=== PATIENT | male | born 1995 | race Two or more races ===

== ENCOUNTER 2022-12-12 14:57 | Emergency (ER) | payer MEDICAID, OTHER ==
[~2022-12-12] VITALS: Ht 177.8 cm; Wt 68.0 kg
[2022-12-12 15:58] LABS: Basophils # (auto) 0 10 ^3/uL (0-0.2); Basophils % (auto) 0.2 % (0.0-2.0); Eosinophils # (auto) 0.2 10 ^3/uL (0-0.8); Eosinophils % (auto) 3.2 % (0.0-7.0); Hematocrit 44.3 % (41.0-53.0); Hemoglobin 14.7 g/dL (13.5-17.5); Lymphocytes # (auto) 1.3 10 ^3/uL (0.4-5.4); Lymphocytes % (auto) 25.2 % (10.0-50.0); Mean Corpuscular Hemoglobin 28.6 pg (28.0-32.0); Mean Corpuscular Hgb Conc. 33.2 g/dL (32.0-36.0); Monocytes # (auto) 0.5 10 ^3/uL (0-1.3); Monocytes % (auto) 9.9 % (0.0-12.0); Neutrophils # (auto) 3.1 10 ^3/uL (1.6-8.6); Neutrophils % (auto) 61.5 % (37.0-80.0); Nucleated Red Blood Cells % 0.1 %; Red Blood Cells 5.15 10^6/uL (4.5-5.90); Red Cell Distribution Width 13.8 % (11.8-14.3); White Blood Cell 5.1 10^3/uL (4.4-10.8)
[2022-12-12] MEDS ORDERED: IOHEXOL 300 MG/ML 100ML BOTTLE IJ ONE (16:06)
[2022-12-12 16:22] LABS: Alanine Aminotransferase 17 U/L (16-61); Albumin 3.6 g/dL (3.4-5.0); Anion Gap 7 (5-15); Aspartate Aminotransferase 10 U/L (15-37); BUN/Creatinine Ratio 16.7 (10.0-20.0); Blood Urea Nitrogen 12 mg/dL (7-18); Calcium 8.6 mg/dL (8.5-10.1); Carbon Dioxide 27 mmol/L (21-32); Chloride 102 mmol/L (98-107); GFR African American 167 mL/min; GFR Non-African American 138 mL/min; Glucose 90 mg/dL (74-106); Sodium 136 mmol/L (136-145)
[2022-12-12 16:25] LABS: Alkaline Phosphatase 97 U/L (45-117); Bilirubin, Total 0.4 mg/dL (0.2-1.0); Total Protein 7.2 g/dL (6.4-8.2)
[2022-12-12] MEDS ORDERED: IBUP200T76 PO (19:08)
[2022-12-12 19:43] VITALS: BP 140/73
== END 2022-12-12 19:54 | disposition home or self-care (01) ==
LOC: ER 14:57
DX: S23.3XXA Sprain of ligaments of thoracic spine, initial encounter (principal); R07.89 Other chest pain; R19.7 Diarrhea, unspecified; F20.9 Schizophrenia, unspecified; Z59.00 Homelessness unspecified; V09.9XXA Pedestrian injured in unspecified transport accident, initial encounter; Y93.89 Activity, other specified; Y92.89 Other specified places as the place of occurrence of the external cause; Y99.8 Other external cause status
CPT/HCPCS: 36415; 71260; 74177; 80053; 85025; 99285; Q9967

== ENCOUNTER 2023-01-08 11:54 | Emergency (ER) | payer MEDICAID, OTHER ==
[~2023-01-08] VITALS: Ht 177.8 cm; Wt 73.0 kg
[~2023-01-08 11:54] MED LIST: IBUP200T76 PO
[2023-01-08 14:00] LABS: Alcohol, Urine < 3.0 mg/dL (0-10); Amphetamine Screen, Urine NEGATIVE (NEGATIVE); Barbiturate Scree,Urine NEGATIVE (NEGATIVE); Benzodiazephine Screen, Urine NEGATIVE (NEGATIVE); Cannabinoid Screen, Urine NEGATIVE (NEGATIVE); Cocaine Screen, Urine NEGATIVE (NEGATIVE); Opiate Scree,Urine NEGATIVE (NEGATIVE); Phencyclidine Screen, Urine NEGATIVE (NEGATIVE)
[2023-01-08 14:00] LABS: Salicylate < 1.7 mg/dL (2.8-20.0)
[2023-01-08 14:13] LABS: Acetaminophen < 2.0 ug/mL (10-30)
[2023-01-09] MEDS ORDERED: OLANZapine 5 MG TAB PO ONE (06:30)
[2023-01-09] MEDS: OLANZapine 5 MG TAB PO SCH (22:07)
[2023-01-10] MEDS: OLANZapine 5 MG TAB PO SCH ×2 (10:23→22:00)
[2023-01-11] MEDS: OLANZapine 5 MG TAB PO SCH ×2 (09:17→23:02)
[2023-01-11 18:03] LABS: Basophils # (auto) 0.1 10 ^3/uL (0-0.2); Eosinophils # (auto) 0.4 10 ^3/uL (0-0.8); Eosinophils % (auto) 6.8 % (0.0-7.0); Hematocrit 40.1 % (41.0-53.0); Hemoglobin 13.6 g/dL (13.5-17.5); Lymphocytes # (auto) 2.1 10 ^3/uL (0.4-5.4); Lymphocytes % (auto) 32.1 % (10.0-50.0); Mean Corpuscular Hgb Conc. 33.9 g/dL (32.0-36.0); Mean Corpuscular Volume 85.5 fL (80.0-100.0); Monocytes # (auto) 0.4 10 ^3/uL (0-1.3); Monocytes % (auto) 5.9 % (0.0-12.0); Neutrophils # (auto) 3.6 10 ^3/uL (1.6-8.6); Neutrophils % (auto) 54.2 % (37.0-80.0); Red Blood Cells 4.69 10^6/uL (4.5-5.90); Red Cell Distribution Width 14.5 % (11.8-14.3); White Blood Cell 6.6 10^3/uL (4.4-10.8)
[2023-01-11 18:25] LABS: Albumin 3.7 g/dL (3.4-5.0); Calcium 8.9 mg/dL (8.5-10.1); Potassium 4.3 mmol/L (3.5-5.1)
[2023-01-11 18:36] LABS: Bilirubin, Total 0.4 mg/dL (0.2-1.0); Total Protein 7.4 g/dL (6.4-8.2)
[2023-01-12] MEDS: OLANZapine 5 MG TAB PO SCH ×2 (11:11→21:44)
[2023-01-12] MEDS: levETIRAcetam 500 MG TAB PO SCH (11:11)
[2023-01-13] MEDS: levETIRAcetam 500 MG TAB PO SCH (11:07)
[2023-01-13] MEDS: OLANZapine 5 MG TAB PO SCH (11:07)
[2023-01-13 11:20] VITALS: BP 114/81
[2023-01-13] MEDS ORDERED: LORazepam 0.5 MG TAB PO ONE (17:00)
== END 2023-01-13 18:27 | disposition left against medical advice (07) ==
LOC: ER 11:54 → EDBD 11:54 → ER 01-13 18:27
DX: F20.9 Schizophrenia, unspecified (principal); Z79.899 Other long term (current) drug therapy; Z59.00 Homelessness unspecified
CPT/HCPCS: 36415; 80053; 80307; 80320; 80329; 85025

== ENCOUNTER 2023-01-14 12:03 | Emergency (ER) | payer MEDICAID, OTHER ==
[~2023-01-14] VITALS: Ht 177.8 cm; Wt 70.4 kg
[2023-01-14 12:03] VITALS: BP 116/81
== END 2023-01-14 12:31 | disposition left against medical advice (07) ==
LOC: ER 12:03
DX: F29 Unspecified psychosis not due to a substance or known physiological condition (principal); Z76.0 Encounter for issue of repeat prescription; Z53.21 Procedure and treatment not carried out due to patient leaving prior to being seen by health care provider

== ENCOUNTER 2023-01-16 19:09 | Emergency (ER) | payer MEDICAID ==
[~2023-01-16] VITALS: Ht 177.8 cm; Wt 72.0 kg
[2023-01-16 19:09] VITALS: BP 115/70; PULSE 80; RESP 20; O2SAT 98
== END 2023-01-16 21:20 | disposition left against medical advice (07) ==
LOC: ER 19:09
DX: F20.9 Schizophrenia, unspecified (principal); Z76.0 Encounter for issue of repeat prescription; Z53.21 Procedure and treatment not carried out due to patient leaving prior to being seen by health care provider

== ENCOUNTER 2023-02-05 19:16 | Emergency (ER) | payer MEDICAID ==
[~2023-02-05] VITALS: Ht 185.4 cm; Wt 81.8 kg
[2023-02-05] MEDS ORDERED: LORazepam 0.5 MG TAB PO ONE (19:45)
[2023-02-05 19:50] LABS: Basophils # (auto) 0.1 10 ^3/uL (0-0.2); Basophils % (auto) 1.5 % (0.0-2.0); Eosinophils # (auto) 0.2 10 ^3/uL (0-0.8); Eosinophils % (auto) 4.2 % (0.0-7.0); Hematocrit 43.2 % (41.0-53.0); Hemoglobin 14.6 g/dL (13.5-17.5); Lymphocytes # (auto) 2.2 10 ^3/uL (0.4-5.4); Lymphocytes % (auto) 37.5 % (10.0-50.0); Mean Corpuscular Hemoglobin 29.4 pg (28.0-32.0); Mean Corpuscular Hgb Conc. 33.7 g/dL (32.0-36.0); Mean Corpuscular Volume 87.2 fL (80.0-100.0); Monocytes # (auto) 0.4 10 ^3/uL (0-1.3); Monocytes % (auto) 7.4 % (0.0-12.0); Neutrophils # (auto) 2.8 10 ^3/uL (1.6-8.6); Neutrophils % (auto) 49.4 % (37.0-80.0); Nucleated Red Blood Cells % 0.1 %; Red Blood Cells 4.95 10^6/uL (4.5-5.90); Red Cell Distribution Width 14.4 % (11.8-14.3); White Blood Cell 5.8 10^3/uL (4.4-10.8)
[2023-02-05 19:57] LABS: Urine Bacteria NONE SEEN /hpf (None Seen); Urine Blood Negative /uL (Negative); Urine Clarity Clear (Clear); Urine Color Yellow (Yellow); Urine Mucus FEW (None Seen); Urine Protein, UAD TRACE (Negative); Urine Specific Gravity 1.037 (1.001-1.035); Urine Urobilinogen Normal (Negative); Urine WBC 1 /hpf (0 - 3); Urine pH 5.5 (5.0-8.0)
[2023-02-05 20:08] LABS: Albumin 3.8 g/dL (3.4-5.0); Anion Gap 6 (5-15); Blood Alcohol < 3.0 mg/dL (<10); Blood Urea Nitrogen 22 mg/dL (7-18); Calcium 8.7 mg/dL (8.5-10.1); Carbon Dioxide 26 mmol/L (21-32); Chloride 110 mmol/L (98-107); Glucose 109 mg/dL (74-106); Sodium 142 mmol/L (136-145)
[2023-02-05 20:09] LABS: Salicylate < 1.7 mg/dL (2.8-20.0)
[2023-02-05 20:11] LABS: Alanine Aminotransferase 20 U/L (16-61); Alkaline Phosphatase 93 U/L (45-117); Aspartate Aminotransferase 18 U/L (15-37); BUN/Creatinine Ratio 28.6 (10.0-20.0); Bilirubin, Total 0.6 mg/dL (0.2-1.0); GFR African American 154 mL/min; GFR Non-African American 127 mL/min; Total Protein 7.4 g/dL (6.4-8.2)
[2023-02-05 20:14] LABS: Acetaminophen < 2.0 ug/mL (10-30)
[2023-02-05 20:37] LABS: Alcohol, Urine < 3.0 mg/dL (0-10); Amphetamine Screen, Urine NEGATIVE (NEGATIVE); Barbiturate Scree,Urine NEGATIVE (NEGATIVE); Benzodiazephine Screen, Urine NEGATIVE (NEGATIVE); Cannabinoid Screen, Urine NEGATIVE (NEGATIVE); Cocaine Screen, Urine NEGATIVE (NEGATIVE); Opiate Scree,Urine NEGATIVE (NEGATIVE); Phencyclidine Screen, Urine NEGATIVE (NEGATIVE)
[2023-02-06 01:15] VITALS: PULSE 72; RESP 16; O2SAT 100
[2023-02-06 08:56] VITALS: PULSE 68; RESP 16; O2SAT 99
[2023-02-06] MEDS ORDERED: FLUoxetine HCL 20 MG CAP PO SCH (10:00)
[2023-02-06] MEDS: QUEtiapine FUMARATE 25 MG TAB PO SCH ×2 (10:11→23:14)
[2023-02-06 19:35] VITALS: PULSE 76; RESP 17; O2SAT 98
[2023-02-07 08:07] VITALS: PULSE 76; RESP 16; O2SAT 97
[2023-02-07 08:45] VITALS: BP 131/67; PULSE 76; RESP 16; TEMP 98.1; O2SAT 97
== END 2023-02-07 09:07 | disposition short-term general hospital (02) ==
LOC: ER 19:16 → EDBD 19:16 → ER 02-07 09:07
DX: R44.0 Auditory hallucinations (principal); R45.851 Suicidal ideations; F17.210 Nicotine dependence, cigarettes, uncomplicated; F15.90 Other stimulant use, unspecified, uncomplicated; F10.90 Alcohol use, unspecified, uncomplicated; Z88.8 Allergy status to other drugs, medicaments and biological substances; Z79.1 Long term (current) use of non-steroidal anti-inflammatories (NSAID); Y90.0 Blood alcohol level of less than 20 mg/100 ml
CPT/HCPCS: 36415; 71045; 80053; 80307; 80320; 80329; 81001; 85025

== ENCOUNTER 2023-05-26 16:41 | Emergency (ER) | payer MEDICAID ==
[~2023-05-26] VITALS: Ht 177.8 cm; Wt 77.2 kg
[2023-05-26 17:30] VITALS: PULSE 104; RESP 18; O2SAT 98
[2023-05-26] MEDS ORDERED: SODIUM CHLORIDE 0.9% 1,000 ML IV ONE (17:30)
[2023-05-26 17:32] LABS: Basophils # (auto) 0.1 10 ^3/uL (0-0.2); Basophils % (auto) 0.9 % (0.0-2.0); Eosinophils # (auto) 0 10 ^3/uL (0-0.8); Eosinophils % (auto) 0.1 % (0.0-7.0); Hematocrit 40.6 % (41.0-53.0); Hemoglobin 13.8 g/dL (13.5-17.5); Lymphocytes # (auto) 1.5 10 ^3/uL (0.4-5.4); Lymphocytes % (auto) 22.7 % (10.0-50.0); Mean Corpuscular Hemoglobin 29.4 pg (28.0-32.0); Mean Corpuscular Volume 86.4 fL (80.0-100.0); Monocytes # (auto) 0.5 10 ^3/uL (0-1.3); Monocytes % (auto) 6.7 % (0.0-12.0); Neutrophils # (auto) 4.8 10 ^3/uL (1.6-8.6); Neutrophils % (auto) 69.6 % (37.0-80.0); Red Cell Distribution Width 13.6 % (11.8-14.3); White Blood Cell 6.8 10^3/uL (4.4-10.8)
[2023-05-26 17:49] LABS: Acetaminophen < 2.0 UG/ML (10.0-20.0); Alanine Aminotransferase 24 U/L (7-40); Alkaline Phosphatase 110 U/L (46-116); Anion Gap 10 (5-15); Aspartate Aminotransferase 33 U/L (13-40); BUN/Creatinine Ratio 15.6 (10.0-20.0); Bilirubin, Total 1.4 mg/dL (0.2-1.0); Blood Urea Nitrogen 15 mg/dL (9-23); Calcium 9.5 mg/dL (8.7-10.4); Carbon Dioxide 23 mmol/L (20-30); Chloride 104 mmol/L (98-107); Glucose 109 mg/dL (74-106); Magnesium 2.2 mg/dL (1.6-2.6); Potassium 4.1 mmol/L (3.5-5.1); Sodium 137 mmol/L (136-145)
[2023-05-26 17:50] LABS: Total Protein 7.8 g/dL (5.7-8.2)
[2023-05-26 18:30] LABS: Salicylate < 3.0 mg/dL (2.8-20.0)
[2023-05-26 19:30] VITALS: PULSE 104; RESP 13; O2SAT 96
[2023-05-27 02:45] VITALS: PULSE 89; RESP 16; O2SAT 99
[2023-05-28 08:02] VITALS: PULSE 79; RESP 17; O2SAT 96
[2023-05-28 08:27] LABS: Amphetamine Screen, Urine Pos (NEGATIVE)
[2023-05-28 08:29] LABS: Barbiturate Scree,Urine Neg (NEGATIVE); Benzodiazephine Screen, Urine Neg (NEGATIVE); Cannabinoid Screen, Urine Pos (NEGATIVE); Cocaine Screen, Urine Neg (NEGATIVE); Opiate Scree,Urine Neg (NEGATIVE); Phencyclidine Screen, Urine Neg (NEGATIVE)
[2023-05-28 08:43] LABS: Urine Bacteria NONE SEEN /hpf (None Seen); Urine Blood Negative /uL (Negative); Urine Clarity Clear (Clear); Urine Color Yellow (Yellow); Urine Mucus FEW (None Seen); Urine Protein, UAD 1+ (Negative); Urine Specific Gravity 1.041 (1.001-1.035); Urine Urobilinogen Normal (Negative); Urine WBC 3 /hpf (0 - 3)
[2023-05-28] MEDS ORDERED: QUEtiapine FUMARATE 25 MG TAB PO SCH (22:00)
[2023-05-29 05:24] VITALS: PULSE 77; RESP 20; O2SAT 99
[2023-05-29 19:35] VITALS: PULSE 72; RESP 17; O2SAT 97
[2023-05-29 21:00] VITALS: BP 123/82; PULSE 66; RESP 16; TEMP 98.3; O2SAT 100
== END 2023-05-29 21:26 | disposition short-term general hospital (02) ==
LOC: ER 16:41
DX: T43.591A Poisoning by other antipsychotics and neuroleptics, accidental (unintentional), initial encounter (principal); R51.9 Headache, unspecified; Z79.899 Other long term (current) drug therapy; Y92.9 Unspecified place or not applicable
CPT/HCPCS: 36415; 70450; 80053; 80307; 80320; 80329; 81001; 83735; 85025; 93005; 96360; 99285; J7030

== ENCOUNTER 2023-06-04 07:12 | Emergency (ER) | payer MEDICAID ==
[~2023-06-04] VITALS: Ht 180.3 cm; Wt 69.0 kg
[2023-06-04 08:35] LABS: Amphetamine Screen, Urine Neg (NEGATIVE)
[2023-06-04 08:36] LABS: Barbiturate Scree,Urine Neg (NEGATIVE); Benzodiazephine Screen, Urine Neg (NEGATIVE); Cannabinoid Screen, Urine Neg (NEGATIVE); Cocaine Screen, Urine Neg (NEGATIVE); Opiate Scree,Urine Neg (NEGATIVE); Phencyclidine Screen, Urine Neg (NEGATIVE)
[2023-06-04] MEDS ORDERED: ALPRAZolam 0.5 MG TAB PO ONE (17:00)
[2023-06-04 18:27] VITALS: PULSE 80; RESP 20; O2SAT 96
[2023-06-04] MEDS ORDERED: QUEtiapine FUMARATE 25 MG TAB PO SCH (22:00)
[2023-06-05 09:09] VITALS: BP 120/66; TEMP 98.1
[2023-06-05 14:50] VITALS: PULSE 89; RESP 17; O2SAT 98
== END 2023-06-05 16:34 | disposition home or self-care (01) ==
LOC: ER 07:12
DX: F20.9 Schizophrenia, unspecified (principal); F17.210 Nicotine dependence, cigarettes, uncomplicated; Z59.00 Homelessness unspecified
CPT/HCPCS: 36415; 80307; 80320

== ENCOUNTER 2023-11-03 08:55 | Emergency (ER) | payer MEDICAID ==
[~2023-11-03] VITALS: Ht 182.9 cm; Wt 72.9 kg
[~2023-11-03 08:55] MED LIST changes: +ARIP5TAB11 PO; +BUPR-36 PO; +LEVE500T40 PO; +OLAN10TA PO; +OLAN20TA PO; +QUET100T38 PO
[2023-11-03 09:52] VITALS: BP 144/92; PULSE 102; RESP 18; TEMP 98; O2SAT 98
[2023-11-03] MEDS: diphenhdrAMINE HCL 50 MG/1 ML VL IM ONE (10:21)
== END 2023-11-03 10:57 | disposition home or self-care (01) ==
LOC: ER 08:55
DX: F41.1 Generalized anxiety disorder (principal); F17.210 Nicotine dependence, cigarettes, uncomplicated; F12.10 Cannabis abuse, uncomplicated; F15.10 Other stimulant abuse, uncomplicated; F14.10 Cocaine abuse, uncomplicated; Z59.00 Homelessness unspecified
CPT/HCPCS: 96372; 99283; J1200

== ENCOUNTER 2023-11-13 12:48 | Emergency (ER) | payer MEDICAID, OTHER ==
[~2023-11-13] VITALS: Ht 177.8 cm; Wt 73.0 kg
[2023-11-13] MEDS: LORazepam 2MG/ML-1ML VIAL ONE (13:22)
[2023-11-13] MEDS: LORazepam 2MG/ML-1ML VIAL IM ONE (13:22)
[2023-11-13] MEDS: HALOPERIDOL LACTATE 5 MG/ML INJ VIAL ONE (13:22)
[2023-11-13] MEDS: HALOPERIDOL LACTATE 5 MG/ML INJ VIAL IM ONE (13:22)
[2023-11-13 18:03] LABS: Urine Bacteria None Seen /hpf (None Seen)
[2023-11-13 18:29] LABS: Amphetamine Screen, Urine Neg (NEGATIVE); Barbiturate Scree,Urine Neg (NEGATIVE); Benzodiazephine Screen, Urine Neg (NEGATIVE); Cannabinoid Screen, Urine Neg (NEGATIVE); Cocaine Screen, Urine Neg (NEGATIVE); Opiate Scree,Urine Neg (NEGATIVE); Phencyclidine Screen, Urine Neg (NEGATIVE)
[2023-11-13 18:36] LABS: Urine Blood 1+ /uL (Negative); Urine Clarity Clear (Clear); Urine Color Colorless (Yellow); Urine Protein, UAD Negative (Negative); Urine Specific Gravity 1.002 (1.001-1.035); Urine Urobilinogen Normal (Negative); Urine WBC <1 /hpf (0 - 3)
[2023-11-13 19:20] VITALS: PULSE 66; RESP 16; O2SAT 96
[2023-11-14 07:38] VITALS: PULSE 90; RESP 18; O2SAT 99
[2023-11-14 07:41] VITALS: BP 114/54; PULSE 90; RESP 18; TEMP 98.1; O2SAT 99
== END 2023-11-14 23:00 | disposition home or self-care (01) ==
LOC: ER 12:48 → EDUNIT# 12:48 → ER 11-14 23:00
DX: F29 Unspecified psychosis not due to a substance or known physiological condition (principal); F32.9 Major depressive disorder, single episode, unspecified; F20.9 Schizophrenia, unspecified; F15.90 Other stimulant use, unspecified, uncomplicated; Z79.899 Other long term (current) drug therapy
CPT/HCPCS: 80307; 81001; 96372; 99284; J1630; J2060

== ENCOUNTER 2023-12-22 00:59 | Emergency (ER) | payer MEDICAID ==
[~2023-12-22] VITALS: Ht 172.7 cm; Wt 70.0 kg
[2023-12-22 02:05] LABS: Basophils # (auto) 0.1 10 ^3/uL (0-0.2); Basophils % (auto) 0.8 % (0.0-2.0); Eosinophils # (auto) 0 10 ^3/uL (0-0.8); Eosinophils % (auto) 0.2 % (0.0-7.0); Hematocrit 41.7 % (41.0-53.0); Lymphocytes # (auto) 1.3 10 ^3/uL (0.4-5.4); Lymphocytes % (auto) 10.5 % (10.0-50.0); Mean Corpuscular Hemoglobin 29.7 pg (28.0-32.0); Mean Corpuscular Volume 82.7 fL (80.0-100.0); Monocytes # (auto) 0.5 10 ^3/uL (0-1.3); Monocytes % (auto) 3.9 % (0.0-12.0); Neutrophils # (auto) 10.1 10 ^3/uL (1.6-8.6); Neutrophils % (auto) 84.6 % (37.0-80.0); Nucleated Red Blood Cells % 0.1 %; Red Blood Cells 5.05 10^6/uL (4.5-5.90); Red Cell Distribution Width 13.8 % (11.8-14.3)
[2023-12-22 02:10] LABS: Chloride 109 mmol/L (98-107); Potassium 3.8 mmol/L (3.5-5.1); Sodium 138 mmol/L (136-145)
[2023-12-22 02:11] LABS: Anion Gap 12 (5-15); Carbon Dioxide 17 mmol/L (20-30)
[2023-12-22 02:12] LABS: Calcium 10.8 mg/dL (8.7-10.4)
[2023-12-22 02:16] LABS: BUN/Creatinine Ratio 10.7 (10.0-20.0); Blood Urea Nitrogen 12 mg/dL (9-23); Glucose 108 mg/dL (74-106)
[2023-12-22 02:18] LABS: Creatine Kinase IFCC 118 U/L (46-171)
[2023-12-22 02:28] LABS: Blood Alcohol < 3.0 mg/dL (<10)
[2023-12-22 02:49] VITALS: PULSE 106; RESP 19; TEMP 98.1; O2SAT 96
[2023-12-22] MEDS: LORazepam 2MG/ML-1ML VIAL IV ONE (02:55)
[2023-12-22] MEDS: SODIUM CHLORIDE 0.9% 1,000 ML IV ONE (02:55)
[2023-12-22 03:24] LABS: Salicylate < 3.0 mg/dL (2.8-20.0)
[2023-12-22 03:34] LABS: Acetaminophen < 2.0 UG/ML (10.0-20.0)
[2023-12-22 06:00] VITALS: BP 146/86; PULSE 93; RESP 13; O2SAT 95
== END 2023-12-22 06:00 | disposition home or self-care (01) ==
LOC: EDBD 00:59 → ER 00:59
DX: T43.651A Poisoning by methamphetamines accidental (unintentional), initial encounter (principal); F32.9 Major depressive disorder, single episode, unspecified; F20.9 Schizophrenia, unspecified; Y92.89 Other specified places as the place of occurrence of the external cause
CPT/HCPCS: 36415; 80048; 80320; 80329; 82550; 84484; 85025; 93005; 96361; 96374; 99284; J2060; J7030

== ENCOUNTER 2024-06-28 00:25 | Emergency (ER) | payer MEDICAID ==
[~2024-06-28] VITALS: Ht 172.7 cm; Wt 160.0 kg
--- NOTE | 2024-06-28 00:54 | ED.PDOC ---
Psychiatric HPI Comments 29-year-old male who came to ER via EMS for hallucinations. Per EMS, patient was picked up on the streets by SO, with an initial call of suicide ideations. Patient does have history of schizophrenia and seizures but has been off his medications for months. Patient denies being suicidal at this time. States he just wants to get back to the [place] residence. He does admit that he has been having auditory and visual hallucinations. Denies taking any prohibited drugs Chief Complaint: Hallucinations Time Seen by MD: 00:53 Primary Care Provider: Denny Jacobs Notes: Child Adolescent Psychiatrist Notes Information Source: Patient Mode of Arrival: EMS Severity: Unable to Care for Self, Unable to Control Self Severity of Pain: Moderate Severity of Mental Status: Moderate Severity of Symptoms: Moderate Timing: Hours Duration: Intermittent Prehospital treatment: None Presents with: Depression, Anxiety, Unclear Thinking, Bizarre Behavior, Suicidal Ideation Circumstance: Medical Clearance, Causing a Disturbance Current substance abuse: None Stressors: Homeless History of: Schizophrenia Associated signs and symptoms: Depression, Hopeless, Anxiety, Hallucinations Past Medical History PAST MEDICAL HISTORY: Depression, Schizophrenia, Seizures Surgical History: Denies all surgeries Family History Family History: Reviewed,noncontributory to illness Social History Smoker: Non-Smoker Alcohol: Denies ETOH Use Drugs: Denies Drug Use Lives In: Homeless Constitutional: denies: chills, diaphoresis, fatigue, fever, malaise, sweats, weakness, others EENTM: denies: blurred vision, double vision, ear bleeding, ear discharge, ear drainage, ear pain, ear ringing, eye pain, eye redness, hearing loss, mouth pain, mouth swelling, nasal discharge, nose bleeding, nose congestion, nose pain, photophobia, tearing, throat pain, throat swelling, voice changes, others Respiratory: denies: cough, hemoptysis, orthopnea, SOB at rest, shortness of breath, SOB with excertion, stridor, wheezing, others Cardiovascular: denies: chest pain, dizzy spells, diaphoresis, Dyspnea on exertion, edema, irregular heart beat, left arm pain, lightheadedness, palpitations, PND, syncope, others Gastrointestinal: denies: abdomen distended, abdominal pain, blood streaked bowels, constipated, diarrhea, dysphagia, difficulty swallowing, hematemesis, melena, nausea, poor appetite, poor fluid intake, rectal bleeding, rectal pain, vomiting, others Genitourinary: denies: burning, dysuria, flank pain, frequency, hematuria, incontinence, penile discharge, penile sore, pain, testicle pain, testicle swelling, urgency, others Neurological: denies: dizziness, fainting, headache, left sided numbness, left sided weakness, numbness, paresthesia, pre-existing deficit, right sided numbness, right sided weakness, seizure, speech problems, tingling, tremors, weakness, others Musculoskeletal: denies: back pain, gout, joint pain, joint swelling, muscle pain, muscle stiffness, neck pain, others Integumetry: denies: bruises, change in color, change in hair/nails, dryness, laceration, lesions, lumps, rash, wounds, others Allergic/Immunocompromised: denies: Difficulty Healing, Frequent Infections, Hives, Itching, others Hematologic/Lymphatic: denies: anemia, blood clots, easy bleeding, easy bruising, swollen glands, others Endocrine: denies: excessive hunger, excessive sweating, excessive thirst, excessive urination, flushing, intolerance to cold, intolerance to heat, unexplained weight gain, unexplained weight loss, others Psychiatric: reports: schizophrenia, suicidal; denies: anxiety, bipolar disorder, depression, hopeless, panic disorder, sleepless, others Physical Exam General Appearance: No Apparent Distress, Normal HEENT: Normal ENT Inspection, Pharynx Normal, TMs Normal Neck: Full Range of Motion, Non-Tender, Normal, Normal Inspection Respiratory: Chest Non-Tender, Lungs Clear, No Accessory Muscle Use, No R espiratory Distress, Normal Breath Sounds Cardiovascular: No Edema, No JVD, No Murmur, No Gallop, Normal Peripheral Pulses, Regular Rate/Rhythm Breast Exam: Deferred Gastrointestinal: No Organomegaly, Non Tender, No Pulsatile Mass, Normal Bowel Sounds, Soft Genitalia: Deferred Pelvic: Deferred Rectal: Deferred Extremities: No calf tenderness, Normal capillary refill, Normal inspection, Normal range of motion, Non-tender, No pedal edema Musculoskeletal : Apperance: Normal Neurologic: Alert, engraver jewelry II-XII nml as Tested, No Motor Deficits, Normal Affect, Normal Mood, No Sensory Deficits, Other (no SI, no HI, mild flight of ideas, able to safety plan) Cerebellar Function: Normal Reflexes: Normal Skin: Dry, Normal Color, Warm Lymphatic: No Adenopathy Was a procedure done? Was a procedure done?: No Psych Differential Dx Psych. Differential Dx: Anxiety, Bipolar Disorder, Depression, Hopeless, Panic Disorder, Schizoprenia, Suicidal X-Ray, Labs, Meds, VS Vital Signs Date Time Temp Pulse Resp B/P (MAP) Pulse Ox O2 Delivery O2 Flow Rate FiO2 06/28/24 00:25 98.0 68 18 127/89 (102) 99 Lab Test 06/28/24 00:54 Range/Units White Blood Count 8.1 4.4-10.8 10^3/uL Red Blood Count 4.96 4.5-5.90 10^6/uL Hemoglobin 14.5 13.5-17.5 g/dL Hematocrit 42.7 41.0-53.0 % Mean Corpuscular Volume 86.2 80.0-100.0 fL Mean Corpuscular Hemoglobin 29.2 28.0-32.0 pg Mean Corpuscular Hemoglobin Concent 33.9 32.0-36.0 g/dL Red Cell Distribution Width 14.3 11.8-14.3 % Platelet Count 280 140-450 10^3/uL Mean Platelet Volume 7.3 6.9-10.8 fL Neutrophils (%) (Auto) 64.1 37.0-80.0 % Lymphocytes (%) (Auto) 24.2 10.0-50.0 % Monocytes (%) (Auto) 6.8 0.0-12.0 % Eosinophils (%) (Auto) 3.8 0.0-7.0 % Basophils (%) (Auto) 1.1 0.0-2.0 % Neutrophils # (Auto) 5.2 1.6-8.6 10 ^3/uL Lymphocytes # (Auto) 2.0 0.4-5.4 10 ^3/uL Monocytes # (Auto) 0.6 0-1.3 10 ^3/uL Eosinophils # (Auto) 0.3 0-0.8 10 ^3/uL Basophils # (Auto) 0.1 0-0.2 10 ^3/uL Nucleated Red Blood Cells 0.0 % Sodium Level 141 136-145 mmol/L Potassium Level 3.6 3.5-5.1 mmol/L Chloride Level 107 98-107 mmol/L Carbon Dioxide Level 26 20-31 mmol/L Anion Gap 8 5-15 Blood Urea Nitrogen 15 9-23 mg/dL Creatinine 0.88 0.700-1.30 mg/dL Glomerular Filtration Rate Calc 119 >90 mL/min BUN/Creatinine Ratio 17.0 10.0-20.0 Serum Glucose 115 H 74-106 mg/dL Calcium Level 10.1 8.7-10.4 mg/dL Total Bilirubin 0.8 0.2-1.0 mg/dL Aspartate Amino Transferase (AST) 12 L 13-40 U/L Alanine Aminotransferase (ALT) 11 7-40 U/L Alkaline Phosphatase 86 46-116 U/L Total Protein 7.5 5.7-8.2 g/dL Albumin 4.5 3.2-4.8 g/dL Salicylates Level < 3.0 -30 mg/dL Acetaminophen Level < 2.0 L 10.0-20.0 UG/ML Plasma/Serum Blood Alcohol 8.0 <10 mg/dL Time of 1ST Reevaluation: 00:49 Reevaluation 1ST: Unchanged Patient Education/Counseling: Diagnosis, Treatment Family Education/Counseling: No Family Present Departure 1 Departure Time of Disposition: 02:48 Impression: Primary Impression: Schizophrenia Disposition: 01 HOME / SELF CARE / HOMELESS Condition: Stable Discharged With: Self Critical Care Note Critical Care Time?: No Stability Stability form required: No Heart Score Heart Score: Heart Score Response (Comments) Value History N/A 0 EKG N/A 0 Age N/A 0 Risk Factors N/A 0 Troponin N/A 0 Total 0 I personally scribed for SNEHAL COSTELLO MD ([email or web address]) on 06/28/24 at 00:54. Electronically submitted by Eduardo Garland ([email or web address]). SNEHAL COSTELLO MD Jun 28, 2024 00:54
[2024-06-28 01:34] LABS: Basophils # (auto) 0.1 10 ^3/uL (0-0.2); Basophils % (auto) 1.1 % (0.0-2.0); Eosinophils # (auto) 0.3 10 ^3/uL (0-0.8); Eosinophils % (auto) 3.8 % (0.0-7.0); Hematocrit 42.7 % (41.0-53.0); Hemoglobin 14.5 g/dL (13.5-17.5); Lymphocytes % (auto) 24.2 % (10.0-50.0); Mean Corpuscular Hemoglobin 29.2 pg (28.0-32.0); Mean Corpuscular Hgb Conc. 33.9 g/dL (32.0-36.0); Mean Corpuscular Volume 86.2 fL (80.0-100.0); Monocytes # (auto) 0.6 10 ^3/uL (0-1.3); Monocytes % (auto) 6.8 % (0.0-12.0); Neutrophils # (auto) 5.2 10 ^3/uL (1.6-8.6); Neutrophils % (auto) 64.1 % (37.0-80.0); Platelet Count (auto) 280 10^3/uL (140-450); Red Blood Cells 4.96 10^6/uL (4.5-5.90); Red Cell Distribution Width 14.3 % (11.8-14.3); White Blood Cell 8.1 10^3/uL (4.4-10.8)
[2024-06-28 01:36] LABS: Alanine Aminotransferase 11 U/L (7-40); Albumin 4.5 g/dL (3.2-4.8); Alkaline Phosphatase 86 U/L (46-116); Anion Gap 8 (5-15); Blood Urea Nitrogen 15 mg/dL (9-23); Calcium 10.1 mg/dL (8.7-10.4); Carbon Dioxide 26 mmol/L (20-31); Potassium 3.6 mmol/L (3.5-5.1); Sodium 141 mmol/L (136-145)
[2024-06-28 01:37] LABS: Bilirubin, Total 0.8 mg/dL (0.2-1.0); Total Protein 7.5 g/dL (5.7-8.2)
[2024-06-28 01:39] LABS: Acetaminophen < 2.0 UG/ML (10.0-20.0); Aspartate Aminotransferase 12 U/L (13-40); Chloride 107 mmol/L (98-107); Glucose 115 mg/dL (74-106); Salicylate < 3.0 mg/dL (-30)
[2024-06-28 03:05] VITALS: BP 127/89; PULSE 68; RESP 18; TEMP 98; O2SAT 99
== END 2024-06-28 03:08 | disposition home or self-care (01) ==
LOC: ER 00:25 → EDUNIT# 00:25 → EDBD 00:25 → ER 03:08
DX: F20.9 Schizophrenia, unspecified (principal); F32.A Depression, unspecified; Z59.00 Homelessness unspecified
CPT/HCPCS: 36415; 80053; 80320; 80329; 85025

== ENCOUNTER 2025-02-13 21:44 | Emergency (ER) | payer MEDICAID ==
[~2025-02-13] VITALS: Ht 180.3 cm; Wt 65.1 kg
[2025-02-13 23:09] LABS: Chloride 103 mmol/L (98-107); Potassium 4.1 mmol/L (3.5-5.1)
[2025-02-13 23:10] LABS: Anion Gap 7 (5-15); Carbon Dioxide 24 mmol/L (20-31)
[2025-02-13 23:11] LABS: Calcium 9.5 mg/dL (8.7-10.4); Hematocrit 37.9 % (41.0-53.0); Hemoglobin 13.5 g/dL (13.5-17.5); Mean Corpuscular Hemoglobin 30.4 pg (28.0-32.0); Mean Corpuscular Volume 85.3 fL (80.0-100.0); Nucleated Red Blood Cells % 0.1 %
[2025-02-13 23:15] LABS: Glucose 102 mg/dL (74-106); Sodium 134 mmol/L (136-145)
[2025-02-13 23:16] LABS: BUN/Creatinine Ratio 9.5 (10.0-20.0)
[2025-02-13 23:22] LABS: Blood Urea Nitrogen 8 mg/dL (9-23)
--- NOTE | 2025-02-14 01:30 | ED.PDOC ---
History of Present Illness HPI Comments This patient is a unfortunate 30-year-old homeless male who arrives the ED today for assistance with general health concerns. Patient states he used to be on psych medications, but has been out of medication for nearly a year. Patient believes he was on Abilify. Patient has a flat affect and appears fearful. Patient is in for general mental health assistance. Vital signs were stable. Patient denies any SI or HI. Chief Complaint: Mental Health Time Seen by MD: 22:00 Primary Care Provider: Denny Reviewed Notes: Nurses Notes Allergies: Coded Allergies: NO KNOWN ALLERGIES (Unverified , 12/12/22) Home Meds Active Scripts Levetiracetam (Keppra) 500 Mg Tab, 1 TAB PO BID, #60 TAB 5 Refills Prov:CALLUM BURKS ZAYDA BRANDT 09/22/23 Bupropion Hcl (Wellbutrin Sr) 100 Mg Tab, 100 MG PO DAILY, #30 TAB Prov:CALLUM BURKS [facility] 09/22/23 Quetiapine Fumerate (Seroquel) 100 Mg Tab, 100 MG PO BID, #60 TAB Prov:CALLUM BURKS ZAYDA [facility] 09/22/23 Aripiprazole (Abilify) 5 Mg Tab, 5 MG PO BID, #60 TAB Prov:VITALIYCALLUM PRIEST [facility] 09/22/23 Olanzapine (Zyprexa) 10 Mg Tab, 10 MG PO BID, #60 TAB Prov:CALLUM BURKS [facility] 09/22/23 Olanzapine (Zyprexa) 20 Mg Tab, 1 TAB PO QPM, #30 TAB Prov:VITALIYCALLUM PRIEST [facility] 09/22/23 Ibuprofen (Advil) 200 Mg Tab, 800 MG PO TID, #30 TAB Prov:EZEQUIEL MULLINS MD 12/12/22 Information Source: Patient Mode of Arrival: Ambulatory Severity: Moderate Timing: Months Duration: Intermittent Prehospital treatment: None Past Medical History PAST MEDICAL HISTORY: Depression, Schizophrenia, Seizures Surgical History: Denies all surgeries Family History Family History: Reviewed,noncontributory to illness Social History Smoker: Non-Smoker Alcohol: Denies ETOH Use Drugs: Denies Drug Use Lives In: Homeless Constitutional: denies: chills, diaphoresis, fatigue, fever, malaise, sweats, weakness, others EENTM: denies: blurred vision, double vision, ear bleeding, ear discharge, ear drainage, ear pain, ear ringing, eye pain, eye redness, hearing loss, mouth pain, mouth swelling, nasal discharge, nose bleeding, nose congestion, nose pain, photophobia, tearing, throat pain, throat swelling, voice changes, others Respiratory: denies: cough, hemoptysis, orthopnea, SOB at rest, shortness of breath, SOB with excertion, stridor, wheezing, others Cardiovascular: denies: chest pain, dizzy spells, diaphoresis, Dyspnea on exertion, edema, irregular heart beat, left arm pain, lightheadedness, palpitations, PND, syncope, others Gastrointestinal: denies: abdomen distended, abdominal pain, blood streaked bowels, constipated, diarrhea, dysphagia, difficulty swallowing, hematemesis, melena, nausea, poor appetite, poor fluid intake, rectal bleeding, rectal pain, vomiting, others Genitourinary: denies: burning, dysuria, flank pain, frequency, hematuria, incontinence, penile discharge, penile sore, pain, testicle pain, testicle swelling, urgency, others Neurological: denies: dizziness, fainting, headache, left sided numbness, left sided weakness, numbness, paresthesia, pre-existing deficit, right sided numbness, right sided weakness, seizure, speech problems, tingling, tremors, weakness, others Musculoskeletal: denies: back pain, gout, joint pain, joint swelling, muscle pain, muscle stiffness, neck pain, others Integumetry: denies: bruises, change in color, change in hair/nails, dryness, laceration, lesions, lumps, rash, wounds, others Allergic/Immunocompromised: denies: Difficulty Healing, Frequent Infections, Hives, Itching, others Hematologic/Lymphatic: denies: anemia, blood clots, easy bleeding, easy bruising, swollen glands, others Endocrine: denies: excessive hunger, excessive sweating, excessive thirst, excessive urination, flushing, intolerance to cold, intolerance to heat, unexplained weight gain, unexplained weight loss, others Psychiatric: reports: anxiety, depression, schizophrenia; denies: bipolar disorder, hopeless, panic disorder, sleepless, suicidal, others Physical Exam General Appearance: Moderate Distress (Patient is a no distress but appears to have significant mental health concerns.), Normal HEENT: Normal ENT Inspection, Pharynx Normal, TMs Normal Neck: Full Range of Motion, Non-Tender, Normal, Normal Inspection Respiratory: Chest Non-Tender, Lungs Clear, No Accessory Muscle Use, No Respiratory Distress, Normal Breath Sounds Cardiovascular: No Edema, No JVD, No Murmur, No Gallop, Normal Peripheral Pulses, Regular Rate/Rhythm Breast Exam: Deferred Gastrointestinal: No Organomegaly, Non Tender, No Pulsatile Mass, Normal Bowel Sounds, Soft Genitalia: Deferred Pelvic: Deferred Rectal: Deferred Extremities: No calf tenderness, Normal capillary refill, Normal inspection, Normal range of motion, Non-tender, No pedal edema Neurologic: Alert Cerebellar Function: NOT DONE Reflexes: NOT DONE Skin: Dry, Normal Color, Warm Lymphatic: No Adenopathy Was a procedure done? Was a procedure done?: No Differential Dx Considerations may include: Anxiety, depression, schizophrenia, homeless X-Ray, Labs, Meds, VS Vital Signs Date Time Temp Pulse Resp B/P (MAP) Pulse Ox O2 Delivery O2 Flow Rate FiO2 02/14/25 00:03 62 17 99 Room Air 02/14/25 00:03 97.5 62 17 123/75 (91) 99 97.5 02/13/25 21:45 97.7 63 18 125/82 98 97.7 Lab Test 02/13/25 22:55 Range/Units White Blood Count 7.5 4.4-10.8 10^3/uL Red Blood Count 4.44 L 4.5-5.90 10^6/uL Hemoglobin 13.5 13.5-17.5 g/dL Hematocrit 37.9 L 41.0-53.0 % Mean Corpuscular Volume 85.3 80.0-100.0 fL Mean Corpuscular Hemoglobin 30.4 28.0-32.0 pg Mean Corpuscular Hemoglobin Concent 35.7 32.0-36.0 g/dL Red Cell Distribution Width 13.4 11.8-14.3 % Platelet Count 238 140-450 10^3/uL Mean Platelet Volume 7.3 6.9-10.8 fL Neutrophils (%) (Auto) 58.5 37.0-80.0 % Lymphocytes (%) (Auto) 33.6 10.0-50.0 % Monocytes (%) (Auto) 5.6 0.0-12.0 % Eosinophils (%) (Auto) 1.8 0.0-7.0 % Basophils (%) (Auto) 0.5 0.0-2.0 % Neutrophils # (Auto) 4.4 1.6-8.6 10 ^3/uL Lymphocytes # (Auto) 2.5 0.4-5.4 10 ^3/uL Monocytes # (Auto) 0.4 0-1.3 10 ^3/uL Eosinophils # (Auto) 0.1 0-0.8 10 ^3/uL Basophils # (Auto) 0 0-0.2 10 ^3/uL Nucleated Red Blood Cells 0.1 % Sodium Level 134 L 136-145 mmol/L Potassium Level 4.1 3.5-5.1 mmol/L Chloride Level 103 98-107 mmol/L Carbon Dioxide Level 24 20-31 mmol/L Anion Gap 7 5-15 Blood Urea Nitrogen 8 L 9-23 mg/dL Creatinine 0.84 0.700-1.30 mg/dL Glomerular Filtration Rate Calc 120 >90 mL/min BUN/Creatinine Ratio 9.5 L 10.0-20.0 Serum Glucose 102 74-106 mg/dL Calcium Level 9.5 8.7-10.4 mg/dL Plasma/Serum Blood Alcohol < 3.0 <10 mg/dL X-Ray, Labs, Meds, VS Comment Patient will remain in the ED until he receives his mental health evaluation. Patient has been medically cleared for that interviewed. Time of 1ST Reevaluation: 01:29 Reevaluation 1ST: Unchanged Consultation: PCP, Psychiatry Patient Education/Counseling: Diagnosis, Treatment Family Education/Counseling: Diagnosis, Treatment SEPSIS Sepsis Screen Date sepsis recognized/suspect: Feb 13, 2025 Time Sepsis recognized/suspect: 2144 Recent Procedure: No On Antibiotic Therapy: No Respiratory Rate >20: No Heart Rate >90: No Temp<36 C (96.8 F) or >38.3 C: No SBP <90 or MAP <65 mmHG: No New Acute Mental Status Change: No Is the patient on CPAP, BIPAP,: No Physician Orders Urinalysis (02/13/25 22:45) Drug Screen (02/13/25 22:45) *Tele Psych Consult (02/13/25 22:45) Vital Signs Date Time Temp Pulse Resp B/P (MAP) Pulse Ox O2 Delivery O2 Flow Rate FiO2 02/14/25 00:03 62 17 99 Room Air 02/14/25 00:03 97.5 62 17 123/75 (91) 99 97.5 02/13/25 21:45 97.7 63 18 125/82 98 97.7 Laboratory Tests Test 02/13/25 22:55 White Blood Count 7.5 10^3/uL (4.4-10.8) Departure 1 Departure Time of Disposition: 01:29 Impression: Primary Impression: Psychosis Additional Impression: Depression Disposition: 30 STILL A PATIENT Condition: Fair Discharged With: Self Critical Care Note Critical Care Time?: No Stability Stability form required: No Heart Score Heart Score: Heart Score Response (Comments) Value History N/A 0 EKG N/A 0 Age N/A 0 Risk Factors N/A 0 Troponin N/A 0 Total 0 FABIEN CHRISTIANSON PAC Feb 14, 2025 01:30
[2025-02-14 02:11] LABS: Amphetamine Screen, Urine Neg (NEGATIVE)
[2025-02-14 02:14] LABS: Urine Protein, UAD TRACE (Negative)
[2025-02-14 02:15] LABS: Barbiturate Scree,Urine Neg (NEGATIVE); Benzodiazephine Screen, Urine Neg (NEGATIVE); Cannabinoid Screen, Urine Neg (NEGATIVE); Cocaine Screen, Urine Neg (NEGATIVE); Opiate Scree,Urine Neg (NEGATIVE); Phencyclidine Screen, Urine Neg (NEGATIVE)
--- NOTE | 2025-02-14 04:15 | DVHINCON2 ---
Date of Service if different f: Feb 14, 2025 Time of Service: 04:15 Consult Consult Note PSYCHIATRY ED NEW CONSULT HPI: 30 yo M pt with PPH of psychosis and ETOH/meth dependency presents to ED for safety, psychiatric stabilization, and possible med initiation/optimization in setting of homelessness, med noncompliance, and anxiety. Psychiatry consulted for safety evaluation and recommendations in context of current presentation Per pt, reports over past several days/weeks experiencing some depressed mood, fatigue, restlessness, irritable, "jittery", and unspecified anxiety symptoms. Reports primary stress as unemployment, lack of meaningful relationships, inadequate housing, limited support system, etc. Denies SI/HI/VH/paranoia/catatonic/perceptual disturbances/personality changes. No overt manic, psychotic, MDD, cognitive, dissociative phenomena, panic, OCD, PTSD, or somatic symptoms noted Pt currently does have active outpt MH services established at this time (psychiatry only) however admits to recent missed f/u appts. Currently rx'd Abilify 10 mg qd but noncompliant for past month, possibly longer, previously rx'd olanzapine, quetiapine Admits to ETOH (DOC) and meth use - last used several days ago, does have moderate hx of THC/ETOH/meth dependency, never IVDU Never , no children, homeless but [facility] years but states he was recently kicked out due to meth use, unemployed, HS grad, some support system noted (immediate family) Unknown trauma hx. Denies FH of psych hospitalizations, suicide attempts, or completed suicides No acute medical/chronic pain issues although hx of seizures, last seizure several months ago, on keppra 500 mg bid. No recent head injuries, NKDA Some hx of SI/SIB via cutting but none recently, several prior psych hospitalizations/5150 holds in context of SI/homelessness, last admission couple of months ago. Denies history of violence, unprovoked aggression, or assaultive behaviors. Denies any legal problems. Does not have access to firearms MSE: General Appearance/Behavior: Alert and awake; appears stated age, fair grooming and hygiene; calm and cooperative, fair eye contact, no PMA/PMR Speech: coherent, rrr Thought Process: linear, logical, concrete, appears goal-directed Thought Content: Abnormal Thoughts and Perceptions: denies dissociative symptoms Homicidality / Violent Thoughts: ailynantly denies HI Suicidality: denies SI Hallucinations: denies AVTH Delusions: denies paranoia, persecutory, or grandiose delusions Obsessions /compulsions: None Judgment and Insight: fair/fair to limited Mood & Affect: "little anxious" with mood-congruent, somewhat restricted but appropriate Orientation: oriented to person, place, time Attention/Concentration: appears intact Cognition: grossly intact Assessment: 30 yo M pt with PPH of psychosis (possibly 2/2 meth use) and ETOH/meth dependency and PMH of seizure disorder presents to ED for safety, psychiatric stabilization, and possible med initiation/optimization in setting of homelessness, med noncompliance, and anxiety No overt manic, psychotic, MDD, cognitive, dissociative phenomena, panic, OCD, PTSD, or somatic symptoms noted Not on any psychotropics and recent METH use maybe contributing to current symptoms. Also currently unsheltered hence possibly seeking inpt psych admission as alternative senior living Pt medically cleared in ED Of note, pt w/hx of seizure d/o, last seizure several months ago, on keppra 500 mg bid Hence, pts acute safety risk is low but seeks inpatient psychiatric admission for safety, psychiatric stabilization, and possible medication initiation/optimization. Pt willing to transfer to inpt psych facility voluntarily. Does NOT meet 5150 criteria Primary Diagnosis: Adjustment disorder unspecified. ETOH/meth use disorder, unspecified. R//o meth induced psychotic disorder. R/o Psychotic disorder unspecified Recommend VOL transfer to inpt psych facility for higher level of care per pts request 1:1 sitter is not recommended Recommend continuation of current outpt med regimen - abilify 10 mg qd - first dose now Defer any psychotropic med changes to accepting inpt psych facility Risks/benefits/alternative treatments discussed, informed consent provided by pt If patient later refuses voluntary hospitalization/ requests to be discharged from ED prior to transfer, pt can be safely discharged WITHOUT psych reassessment or 5150 evaluation, rather SW consultation for housing resources would be appropriate Pt verbalized understanding and is receptive to above tx plan This case was discussed with ED nurse/provider and all parties in agreement with above tx plan Esdras Duffy MD Plan discussed with: Patient ESDRAS DUFFY MD Feb 14, 2025 04:15
[2025-02-14] MEDS: levETIRAcetam 500 MG TAB PO ONE (09:20)
[2025-02-14 15:28] VITALS: BP 111/69; PULSE 65; RESP 14; TEMP 97.8; O2SAT 100
== END 2025-02-14 17:02 | disposition short-term general hospital (02) ==
LOC: ER 21:44
DX: F28 Other psychotic disorder not due to a substance or known physiological condition (principal); F32.A Depression, unspecified; F20.9 Schizophrenia, unspecified; Z79.1 Long term (current) use of non-steroidal anti-inflammatories (NSAID); Z79.899 Other long term (current) drug therapy
CPT/HCPCS: 36415; 80048; 80307; 80320; 81001; 85025

== ENCOUNTER → 2025-03-01 | Emergency (ER) | payer MEDICAID ==
[~2025-03-01] VITALS: Ht 180.3 cm; Wt 66.9 kg
[2025-03-01 22:24] VITALS: BP 114/70; PULSE 71; RESP 16; TEMP 98; O2SAT 96
== END | disposition left against medical advice (07) ==
LOC: ER 22:15
DX: F99 Mental disorder, not otherwise specified (principal); Z76.0 Encounter for issue of repeat prescription; Z53.21 Procedure and treatment not carried out due to patient leaving prior to being seen by health care provider

== ENCOUNTER 2025-04-06 23:17 | Emergency (ER) | payer MEDICAID ==
[~2025-04-06] VITALS: Ht 180.3 cm; Wt 55.0 kg
[2025-04-07 00:13] LABS: Hematocrit 40.2 % (41.0-53.0); Hemoglobin 13.9 g/dL (13.5-17.5); Mean Corpuscular Hemoglobin 30.1 pg (28.0-32.0); Mean Corpuscular Volume 87.1 fL (80.0-100.0); Nucleated Red Blood Cells % 0.1 %
[2025-04-07 00:19] LABS: Chloride 106 mmol/L (98-107); Potassium 3.8 mmol/L (3.5-5.1); Sodium 143 mmol/L (136-145)
[2025-04-07 00:20] LABS: Anion Gap 9 (5-15); Calcium 9.3 mg/dL (8.7-10.4); Carbon Dioxide 28 mmol/L (20-31)
[2025-04-07 00:25] LABS: BUN/Creatinine Ratio 22.9 (10.0-20.0); Blood Urea Nitrogen 19 mg/dL (9-23); Glucose 96 mg/dL (74-106)
--- NOTE | 2025-04-07 00:48 | ED.PDOC ---
Psychiatric HPI Comments This patient is a homeless 40-year-old male with a history of schizophrenia who arrives to the ED today for evaluation of auditory hallucination concerns and failure to thrive. Patient states he has been struggling with the street and hearing voices. I am familiar with the patient due to prior visits. When asked that the patient was on medication, patient states he does not currently have medication. Patient denies any fever nausea or vomiting. Vital signs were stable. Patient is getting thinner every visit and appears to be suffering from a failure to thrive concern. Chief Complaint: Hallucinations Time Seen by MD: 23:21 Primary Care Provider: Denny Reviewed Notes: Nurses Notes Information Source: Patient Mode of Arrival: Ambulatory Severity: Unable to Care for Self Severity of Pain: None Severity of Mental Status: Severe Severity of Symptoms: Severe Timing: Months Duration: Since onset Prehospital treatment: None Presents with: Unclear Thinking History of: Schizophrenia Quality: Hallucinations Past Medical History PAST MEDICAL HISTORY: Depression, Schizophrenia, Seizures Surgical History: Denies all surgeries Family History Family History: Reviewed,noncontributory to illness Social History Smoker: Non-Smoker Alcohol: Denies ETOH Use Drugs: Denies Drug Use Lives In: Homeless Constitutional: reports: fatigue; denies: chills, diaphoresis, fever, malaise, sweats, weakness, others EENTM: denies: blurred vision, double vision, ear bleeding, ear discharge, ear drainage, ear pain, ear ringing, eye pain, eye redness, hearing loss, mouth pain, mouth swelling, nasal discharge, nose bleeding, nose congestion, nose pain, photophobia, tearing, throat pain, throat swelling, voice changes, others Respiratory: denies: cough, hemoptysis, orthopnea, SOB at rest, shortness of breath, SOB with excertion, stridor, wheezing, others Cardiovascular: denies: chest pain, dizzy spells, diaphoresis, Dyspnea on exertion, edema, irregular heart beat, left arm pain, lightheadedness, palpitations, PND, syncope, others Gastrointestinal: denies: abdomen distended, abdominal pain, blood streaked bowels, constipated, diarrhea, dysphagia, difficulty swallowing, hematemesis, melena, nausea, poor appetite, poor fluid intake, rectal bleeding, rectal pain, vomiting, others Genitourinary: denies: burning, dysuria, flank pain, frequency, hematuria, incontinence, penile discharge, penile sore, pain, testicle pain, testicle swe lling, urgency, others Neurological: denies: dizziness, fainting, headache, left sided numbness, left sided weakness, numbness, paresthesia, pre-existing deficit, right sided numbness, right sided weakness, seizure, speech problems, tingling, tremors, weakness, others Musculoskeletal: denies: back pain, gout, joint pain, joint swelling, muscle pain, muscle stiffness, neck pain, others Integumetry: denies: bruises, change in color, change in hair/nails, dryness, laceration, lesions, lumps, rash, wounds, others Allergic/Immunocompromised: denies: Difficulty Healing, Frequent Infections, Hives, Itching, others Hematologic/Lymphatic: denies: anemia, blood clots, easy bleeding, easy bruising, swollen glands, others Endocrine: denies: excessive hunger, excessive sweating, excessive thirst, excessive urination, flushing, intolerance to cold, intolerance to heat, unexplained weight gain, unexplained weight loss, others Psychiatric: reports: depression, schizophrenia, others (Auditory hallucinations); denies: anxiety, bipolar disorder, hopeless, panic disorder, sleepless, suicidal Physical Exam General Appearance: Moderate Distress (Patient appears to be struggling on the street. Patient is not well kempt and dirty. Patient appears to be losing weight. Patient displays signs of failure to thrive.), Normal HEENT: Normal ENT Inspection, Pharynx Normal, TMs Normal Neck: Full Range of Motion, Non-Tender, Normal, Normal Inspection Respiratory: Chest Non-Tender, Lungs Clear, No Accessory Muscle Use, No Respiratory Distress, Normal Breath Sounds Cardiovascular: No Edema, No JVD, No Murmur, No Gallop, Normal Peripheral Pulses, Regular Rate/Rhythm Breast Exam: Deferred Gastrointestinal: No Organomegaly, Non Tender, No Pulsatile Mass, Normal Bowel Sounds, Soft Genitalia: Deferred Pelvic: Deferred Rectal: Deferred Extremities: Normal capillary refill, No pedal edema Neurologic: Alert Cerebellar Function: NOT DONE Reflexes: NOT DONE Skin: Dry, Normal Color, Warm Lymphatic: No Adenopathy Was a procedure done? Was a procedure done?: No Psych Differential Dx Psych. Differential Dx: Bipolar Disorder, Depression, Schizoprenia, Other (Failure to thrive) X-Ray, Labs, Meds, VS Vital Signs Date Time Temp Pulse Resp B/P (MAP) Pulse Ox O2 Delivery O2 Flow Rate FiO2 04/06/25 23:22 97.7 78 20 10/80 97 97.7 Lab Test 04/06/25 23:58 Range/Units White Blood Count 6.8 4.4-10.8 10^3/uL Red Blood Count 4.62 4.5-5.90 10^6/uL Hemoglobin 13.9 13.5-17.5 g/dL Hematocrit 40.2 L 41.0-53.0 % Mean Corpuscular Volume 87.1 80.0-100.0 fL Mean Corpuscular Hemoglobin 30.1 28.0-32.0 pg Mean Corpuscular Hemoglobin Concent 34.5 32.0-36.0 g/dL Red Cell Distribution Width 14.2 11.8-14.3 % Platelet Count 264 140-450 10^3/uL Mean Platelet Volume 7.3 6.9-10.8 fL Neutrophils (%) (Auto) 48.5 37.0-80.0 % Lymphocytes (%) (Auto) 39.3 10.0-50.0 % Monocytes (%) (Auto) 6.4 0.0-12.0 % Eosinophils (%) (Auto) 4.9 0.0-7.0 % Basophils (%) (Auto) 0.9 0.0-2.0 % Neutrophils # (Auto) 3.3 1.6-8.6 10 ^3/uL Lymphocytes # (Auto) 2.7 0.4-5.4 10 ^3/uL Monocytes # (Auto) 0.4 0-1.3 10 ^3/uL Eosinophils # (Auto) 0.3 0-0.8 10 ^3/uL Basophils # (Auto) 0.1 0-0.2 10 ^3/uL Nucleated Red Blood Cells 0.1 % Sodium Level 143 136-145 mmol/L Potassium Level 3.8 3.5-5.1 mmol/L Chloride Level 106 98-107 mmol/L Carbon Dioxide Level 28 20-31 mmol/L Anion Gap 9 5-15 Blood Urea Nitrogen 19 9-23 mg/dL Creatinine 0.83 0.700-1.30 mg/dL Glomerular Filtration Rate Calc 120 >90 mL/min BUN/Creatinine Ratio 22.9 H 10.0-20.0 Serum Glucose 96 74-106 mg/dL Calcium Level 9.3 8.7-10.4 mg/dL Plasma/Serum Blood Alcohol < 3.0 <10 mg/dL X-Ray, Labs, Meds, VS Comment This patient is a nice man who needs assistance. Patient needs to be under inpatient care with proper medications as well as proper nutrition and hydration. Studies were pending at time of this note. Patient will remain in the ED until his tele psych consult and hopeful placement Time of 1ST Reevaluation: 00:46 Reevaluation 1ST: Improved Consultation: PCP, Psychiatry Patient Education/Counseling: Diagnosis, Treatment Family Education/Counseling: Diagnosis, Treatment Departure 1 Departure Time of Disposition: 00:47 Impression: Primary Impression: Psychosis Additional Impressions: Hallucinations Failure to thrive Disposition: 30 STILL A PATIENT Condition: Fair Discharged With: Self Critical Care Note Critical Care Time?: No Stability Stability form required: No Heart Score Heart Score: Heart Score Response (Comments) Value History N/A 0 EKG N/A 0 Age N/A 0 Risk Factors N/A 0 Troponin N/A 0 Total 0 FABIEN CHRISTIANSON PAC Apr 07, 2025 00:47
[2025-04-07 05:45] LABS: Urine Protein, UAD Negative (Negative)
[2025-04-07 05:52] LABS: Amphetamine Screen, Urine Neg (NEGATIVE)
[2025-04-07 05:58] LABS: Barbiturate Scree,Urine Neg (NEGATIVE); Benzodiazephine Screen, Urine Neg (NEGATIVE); Cannabinoid Screen, Urine Neg (NEGATIVE); Cocaine Screen, Urine Neg (NEGATIVE); Opiate Scree,Urine Neg (NEGATIVE); Phencyclidine Screen, Urine Neg (NEGATIVE)
[2025-04-07 07:10] VITALS: PULSE 65; RESP 18; O2SAT 99
--- NOTE | 2025-04-07 07:32 | DVHINCON2 ---
Date of Service if different f: Apr 07, 2025 Time of Service: 07:31 Consult Consult Note PSYCHIATRY ED NEW CONSULT HPI: 30 yo M pt with PPH of psychosis (possibly 2/2 meth use) and ETOH/meth dependency and PMH of seizure disorder presents to ED for safety, psychiatric stabilization, and possible med initiation/optimization in setting of homelessness, med noncompliance, AH, weight loss, and anxiety. Psychiatry consulted for safety evaluation and recommendations in context of current presentation. Of note, pt w/ freq ED visits for similar cc/presentation Per pt, reports over past several days/weeks experiencing some depressed mood, fatigue, restlessness, irritable, "jittery", CAH to hurt self, poor appetite, and unspecified anxiety symptoms. Reports primary stress as unemployment, i nadequate housing, limited support system, etc. Denies SI/HI/VH/paranoia/catatonia, etc. No overt manic, MDD, cognitive, dissociative phenomena, panic, OCD, PTSD, or somatic symptoms noted Pt currently does have active outpt MH services established at this time (psychiatry only) however admits to recent missed f/u appts. Currently rx'd Abilify 10 mg qd but noncompliant for past several months, possibly longer, previously rx'd olanzapine, quetiapine, long hx of med noncompliance noted Admits to ETOH (DOC) and meth use - last used several days ago, does have moderate hx of THC/ETOH/meth dependency, never IVDU Never , no children, homeless but [facility] but states he was recently kicked out due to meth use, unemployed, HS grad, some support system noted (immediate family) Unknown trauma hx. Denies FH of psych hospitalizations, suicide attempts, or completed suicides No acute medical/chronic pain issues although hx of seizures, last seizure several months ago, on keppra 500 mg bid. No recent head injuries, NKDA Some hx of SI/remote SIB via cutting but none recently, several prior psych hospitalizations/5150 holds in context of SI/homelessness, last admission couple of months ago to [facility]. Denies history of violence, unprovoked aggression, or assaultive behaviors. Denies any legal problems. Does not have access to firearms MSE: General Appearance/Behavior: Alert and awake; appears stated age, fair grooming and hygiene; calm and cooperative, fair eye contact, no PMA/PMR Speech: coherent, rrr Thought Process: linear, logical, concrete, appears goal-directed Thought Content: Abnormal Thoughts and Perceptions: denies dissociative symptoms Homicidality / Violent Thoughts: adamantly denies HI Suicidality: denies SI Hallucinations: +AH Delusions: denies paranoia, persecutory, or grandiose delusions Obsessions /compulsions: None Judgment and Insight: fair/fair to limited Mood & Affect: "anxious" with mood-congruent, bit restricted/ appropriate Orientation: oriented to person, place, time Attention/Concentration: appears intact Cognition: grossly intact Assessment: 30 yo M pt with PPH of psychosis (possibly 2/2 meth use) and ETOH/meth dependency and PMH of seizure disorder presents to ED for safety, psychiatric stabilization, and possible med initiation/optimization in setting of homelessness, med noncompliance, AH, weight loss, and anxiety. Of note, pt w/ freq ED visits for similar cc/presentation No overt manic, psychotic, MDD, cognitive, dissociative phenomena, panic, OCD, PTSD, or somatic symptoms noted Not compliant on psychotropics and recent METH use maybe contributing to current symptoms. Also currently unsheltered hence possibly seeking inpt psych admission as alternative fdc Pt medically cleared in ED Of note, pt w/hx of seizure d/o, last seizure several months ago, on keppra 500 mg bid Hence, pts acute safety risk is low but seeks inpatient psychiatric admission for safety, psychiatric stabilization, and possible medication initiation/optimization. Pt willing to transfer to inpt psych facility voluntarily. Does NOT meet 5150 criteria Primary Diagnosis: Psychotic disorder unspecified. ETOH/meth use disorder, moderate. R/o meth induced psychotic disorder Recommend VOL transfer to inpt psych facility for higher level of care 1:1 sitter is not recommended Recommend restarting of current outpt med - abilify 10 mg qd - first dose now Defer any psychotropic med changes to accepting inpt psych facility - may benefit from GAGNON initiation in setting of long med noncompliance hx to PO meds Risks/benefits/alternative treatments discussed, informed consent provided by pt If patient later refuses voluntary hospitalization/ requests to be discharged from ED prior to transfer, pt can be safely discharged WITHOUT psych reassessment or 5150 evaluation, rather SW consultation for housing resources would be appropriate Pt verbalized understanding and is receptive to above tx plan This case was discussed with ED nurse/provider and all parties in agreement with above tx plan Esdras Duffy MD Plan discussed with: Patient ESDRAS DUFFY MD Apr 07, 2025 07:32
[2025-04-07] MEDS ORDERED: levETIRAcetam 500 MG TAB PO ONE (10:15)
[2025-04-07] MEDS: levETIRAcetam 500 MG TAB PO SCH (10:45)
--- NOTE | 2025-04-07 12:59 | DVHINCON2 ---
Date of Service if different f: Apr 07, 2025 Time of Service: 10:00 Consultation ([facility]) Labs Laboratory Tests Test 04/06/25 23:58 04/07/25 05:00 White Blood Count 6.8 10^3/uL (4.4-10.8) Red Blood Count 4.62 10^6/uL (4.5-5.90) Hemoglobin 13.9 g/dL (13.5-17.5) Hematocrit 40.2 % (41.0-53.0) Mean Corpuscular Volume 87.1 fL (80.0-100.0) Mean Corpuscular Hemoglobin 30.1 pg (28.0-32.0) Mean Corpuscular Hemoglobin Concent 34.5 g/dL (32.0-36.0) Red Cell Distribution Width 14.2 % (11.8-14.3) Platelet Count 264 10^3/uL (140-450) Mean Platelet Volume 7.3 fL (6.9-10.8) Neutrophils (%) (Auto) 48.5 % (37.0-80.0) Lymphocytes (%) (Auto) 39.3 % (10.0-50.0) Monocytes (%) (Auto) 6.4 % (0.0-12.0) Eosinophils (%) (Auto) 4.9 % (0.0-7.0) Basophils (%) (Auto) 0.9 % (0.0-2.0) Neutrophils # (Auto) 3.3 10 ^3/uL (1.6-8.6) Lymphocytes # (Auto) 2.7 10 ^3/uL (0.4-5.4) Monocytes # (Auto) 0.4 10 ^3/uL (0-1.3) Eosinophils # (Auto) 0.3 10 ^3/uL (0-0.8) Basophils # (Auto) 0.1 10 ^3/uL (0-0.2) Nucleated Red Blood Cells 0.1 % Sodium Level 143 mmol/L (136-145) Potassium Level 3.8 mmol/L (3.5-5.1) Chloride Level 106 mmol/L (98-107) Carbon Dioxide Level 28 mmol/L (20-31) Anion Gap 9 (5-15) Blood Urea Nitrogen 19 mg/dL (9-23) Creatinine 0.83 mg/dL (0.700-1.30) Glomerular Filtration Rate Calc 120 mL/min (>90) BUN/Creatinine Ratio 22.9 (10.0-20.0) Serum Glucose 96 mg/dL (74-106) Calcium Level 9.3 mg/dL (8.7-10.4) Plasma/Serum Blood Alcohol < 3.0 mg/dL (<10) Urine Color Light-yellow (Yellow) Urine Clarity Clear (Clear) Urine pH 5.5 (5.0-9.0) Urine Specific [place] 1.030 (1.001-1.035) Urine Protein Negative (Negative) Urine Ketones Negative (Negative) Urine Blood Negative /uL (Negative) Urine Nitrite Negative (Negative) Urine Bilirubin Negative (Negative) Urine Urobilinogen Normal mg/dL (Negative) Urine Leukocyte Esterase Negative /uL (Negative) Urine RBC <1 /hpf (0 - 3) Urine Microscopic WBC < 1 /HPF (0-3) Urine Squamous Epithelial Cells None seen /hpf (<5) Urine Bacteria None seen /hpf (None Seen) Urine Mucus Few (None Seen) Urine Glucose Normal mg/dL (Normal) Urine Opiates Screen Neg (NEGATIVE) Urine Fentanyl Screen Neg (NEGATIVE) Urine Barbiturates Screen Neg (NEGATIVE) Urine Phencyclidine Screen Neg (NEGATIVE) Urine Amphetamines Screen Neg (NEGATIVE) Urine Benzodiazepines Screen Neg (NEGATIVE) Urine Cocaine Screen Neg (NEGATIVE) Urine Cannabinoids Screen Neg (NEGATIVE) Vitals Vital Signs Date Time Temp Pulse Resp B/P (MAP) Pulse Ox O2 Delivery O2 Flow Rate FiO2 04/07/25 07:10 98.0 65 18 119/63 (81) 99 98.0 04/07/25 07:10 Room Air* 0 21 Current medications Current Medications Medications Dose Ordered Sig/Nic Route Start Time Stop Time Status Last Admin Dose Admin Levetiracetam 500 mg BID PO 04/07/25 10:39 04/07/25 10:45 500 MG Olanzapine 5 mg HS PO 04/07/25 22:00 PSYCHIATRY CONSULTATION FOLLOW UP NOTE REASON FOR CONSULT: Ability recommended by evaluating psychiatrist, but med not on formulary. Need other med recommendation. SUBJECTIVE: Pt says he is fine. He is awaiting transfer to inpatient psychiatry. He has been on Abilify in the past, reports benefit, no SE. Pt informed this med is not on formulary at current ED. However, another med can be started, and he may be switched to Abilify upon transfer. Pt has been both on Risperidone and Zyprexa in the past. He prefers Risperidone. Prior dose of 2mg nightly, on which he had possible tremulousness. He has not been on lower dose that he can recall. Despite history, he continues to prefer Risperidone while in the ED. OBJECTIVE: Fair appearing, calm, cooperative, no abnormal movements. Speech WNL, TP goal directed. Mood fair, affect euthymic, blunted, not irritable nor labile. No expressed SI, HI, AVH. Insight, judgement, impulse control, fair. ASSESSMENT & RECOMMENDATIONS: - No change in hold status - Continue plan for transfer to inpatient psychiatry - While in [facility] ED, can order Risperidone 1 mg po QHS for psychosis. If Risperidone nonformulary, can order Zyprexa 5 mg po QHS. - Once transferred to inpatient psychiatry, medication can be switched to Abilify. WENDIE KELLEY MD Apr 07, 2025 12:59
[2025-04-07 16:02] VITALS: BP 106/57; PULSE 62; RESP 16; TEMP 98.1; O2SAT 99
[2025-04-07] MEDS ORDERED: OLANZapine 5 MG TAB PO SCH (22:00)
[2025-04-07] MEDS ORDERED: OLANZapine 5 MG TAB PO ONE (22:00)
== END 2025-04-07 16:23 | disposition short-term general hospital (02) ==
LOC: ER 23:17
DX: F29 Unspecified psychosis not due to a substance or known physiological condition (principal); R62.7 Adult failure to thrive; F41.9 Anxiety disorder, unspecified; F32.A Depression, unspecified; Z79.899 Other long term (current) drug therapy
CPT/HCPCS: 36415; 80048; 80307; 80320; 81001; 85025